=== PATIENT | male | born 1955 | race Caucasian/White ===

== ENCOUNTER 2019-06-09 05:27 | Day surgery (SDC) | payer OTHER ==
[~2019-06-09] VITALS: Ht 182.9 cm; Wt 93.0 kg
[2019-06-09 06:07] LABS: BASOPHILS 0.2 % (0-2); EOSINOPHILS 3.7 % (0-7); HEMATOCRIT 32.4 % (42.0-54.0); HEMOGLOBIN 9.7 g/dL (13.5-17.5); LYMPHOCYTES 29.5 % (15-50); MCH 21.6 pg (26.0-34.0); MCHC 29.9 g/dL (31.0-37.0); MEAN PLATELET VOLUME 9.6 fL (7.4-10.4); MONOCYTES 11.5 % (2-11); NEUTROPHILS 55.1 % (40-80); PLATELET COUNT 154 10x3/uL (130-400); RDW 20.1 % (11.5-14.5); WBC 4.1 10x3/uL (4.8-10.8)
[2019-06-09 06:17] LABS: APTT 31.5 SECONDS (22.8-39.4); INR 1.17 (0.85-1.17); PROTIME 14.4 SECONDS (11.6-15.0)
[2019-06-09 06:29] LABS: ALBUMIN 4.6 g/dL (3.4-5.0); ANION GAP 14.3 mmol/L (8-16); BILIRUBIN - TOTAL 0.46 mg/dL (0.2-1.3); CALCIUM 8.5 mg/dL (8.5-10.1); CARBON DIOXIDE 22.9 mmol/L (21.0-32.0); CREATININE - SERUM 1.1 mg/dL (0.6-1.3); POTASSIUM - SERUM 3.2 mmol/L (3.5-5.1); PROTEIN - SERUM 8.2 g/dL (6.4-8.2)
[2019-06-09 08:51] VITALS: BP 118/71; Ht 182.9 cm; Wt 93.0 kg
[2019-06-09] MEDS ORDERED: NORVASC10 MG PO (09:09)
[2019-06-09] MEDS ORDERED: COREG6.25 MG (09:10)
[2019-06-09] MEDS ORDERED: VASOTEC20 MG (09:10)
[2019-06-09] MEDS ORDERED: FUROSEMIDE40 MG PO (09:11)
[2019-06-09] MEDS ORDERED: HYDRALAZINE HCL25 MG PO (09:12)
[2019-06-09] MEDS ORDERED: ATARAX 25 MG TA25 MG PO (09:12)
[2019-06-09] MEDS ORDERED: INDOCIN25 MG PO (09:13)
[2019-06-09] MEDS ORDERED: NITROSTAT0.4 MG SL (09:14)
[2019-06-09] MEDS ORDERED: CHRONULAC30 ML PO (09:14)
[2019-06-09] MEDS ORDERED: ALDACTONE50 MG PO (09:15)
[2019-06-09] MEDS ORDERED: OMEPRAZOLE20 M1 PO (09:15)
[2019-06-09] MEDS ORDERED: TOPAMAX50 MG PO (09:16)
[2019-06-09] MEDS ORDERED: VENTOLIN (09:17)
--- NOTE | 2019-06-09 14:25 | NUR ---
1411-REC'D FROM RR. DROWSY,EASILY AROUSED,VSS,NO DISTRESS. REPORTS PAIN TO ABD,DESCRIBES AT [facility] WITH RATING 6/10. CO'S AT BEDSIDE WITH CL IN EASY REACH.
--- NOTE | 2019-06-09 16:06 | NUR ---
1453-ATTEMPTED TO ADMINISTER PER MD ORDERS ULTRAM 50MG. AFTER TEACHING ON MEDICATION THIS NURSE WAS SCANNING AND MD ORDERED FOR PAIN. IM THEN SAID HE WAS UNABLE TO TAKE IT BC IT CAUSES HIM TO HAVE "INCREASE ENERGY" REFUSED TO TAKE.
--- NOTE | 2019-06-09 16:07 | NUR ---
1505-DR SAHNI NOTIFIED OF INMATE REFUSING TO TAKE SCRIPT FOR ULTRAM, DOCUMENTED IM IS ALERGIC TO HYDROCODONE. INMATE REQUEST HE TAKE NEURONTIN. NO NEW ORDERS RECEIVED VIA PHONE.
--- NOTE | 2019-06-09 16:08 | NUR ---
1510- DR SAHNI TO PTS ROOM TO DISCUSS CONCERN WITH ALLERGY TO HYDROCODONE, PT REFUSED TO TAKE ULTRAM AND REQUEST TO TAKE NEURONTIN. AFTER KAITLYN AND PTS CONVERSATION. PT AGREES TO TAKE RECOMMENDED PAIN MANAGEMENT REGIMEN OF ULTRAM 50MG.
--- NOTE | 2019-06-09 16:10 | NUR ---
1514- PER MD ORDERS ADMINISTERED ULTRAM 50MG 1 TABLET BY MOUTH FOR PAIN MANAGEMENT. SEE EMAR.
--- NOTE | 2019-06-09 16:11 | NUR ---
1545-DISCHARGE CRITERIA MET. REVIEWED POST OPERATIVE INSTRUCTIONS REVIEWED WITH PT WITH CORRECTIONAL OFFICERS AT SIDE. COPY OF INSTRUCTIONS WITH ULTRAM SCRIPT GIVEN IN BROWN ENVELOPE TO BOTTOM STOP ATTACHER. VERBALIZED UNDERSTANDING OF INSTRUCTIONS. ESCORTED OUT VIA W/C WITH ADC TO DRIVE HOME.
--- NOTE | 2019-06-10 21:29 | OP ---
PATIENT NAME: DALE CABALLERO MEDICAL RECORD: [id number] :57 LOCATION:D.OPS ADMISSION DATE: SURGEON: KAYLA SAHNI MD DATE OF OPERATION: 06/09/2019 PREOPERATIVE DIAGNOSES: 1. Symptomatic gallbladder polyp. 2. Hepatitis C. 3. History of colon polyps. 4. Hematochezia. POSTOPERATIVE DIAGNOSES: 1. Symptomatic gallbladder polyp. 2. Hepatitis C. 3. History of colon polyps. 4. Hematochezia. 5. One low rectal polyp that is not the source of the patient's hematochezia. 6. Advanced cirrhosis. PROCEDURE: 1. Laparoscopic cholecystectomy. 2. Intraoperative cholangiography without immediate surgeon interpretation. 3. 14-gauge core needle liver biopsies. 4. Total colonoscopy to cecum. 5. Hot biopsy forceps polypectomy times 1. SURGEON: Kayla Sahni MD HISTOPATHOLOGIST: None. BLOOD LOSS: 50 cc. ANESTHESIA: General. COMPLICATIONS: None. The risks, possible complications, and alternatives to the procedure were explained to the patient. He elects to proceed. The discussion specifically included, but was not limited to, bleeding requiring emergency reoperation, infection, bowel injury, common ductal injury. OPERATIVE COURSE: The patient was conveyed to the operating room electively on 06/09/2019. General anesthesia was induced by the anesthesia staff. The patient was positioned supine. The abdomen was sterilely prepped and draped. A transverse incision was accomplished in the left upper quadrant. A Veress needle was inserted through the skin jo ann into the peritoneal cavity. CO2 insufflation was begun. Once a sufficient pneumoperitoneum had been achieved, a 5-mm trocar was inserted through an incision in the right upper quadrant. Under direct internal vision utilizing a television camera, a 5-mm trocar was inserted in the left upper quadrant. Another 5-mm trocar was inserted far laterally in the right upper quadrant. A 12-mm trocar was inserted through an incision in the umbilicus. During insertion of the Veress needle and all trocars, there appeared to have been no injury to the bowels, any intraperitoneal or retroperitoneal structures. OPERATIVE REPORT [id number] DALE CABALLERO The indication for the liver biopsy was cirrhosis and hepatitis C. Under laparoscopic guidance, I percutaneously accessed the right upper quadrant utilizing a 14-gauge core biopsy device. Cores were obtained over the convexity of the liver. The biopsy sites were made hemostatic with electrocautery. I then advanced a cholangiogram trocar. I punctured the fundus of the gallbladder. I aspirated bile. I then injected dye. Cholangiographic images were obtained. These were sent to the radiologist for interpretation. The cholangiogram catheter was then removed. The gallbladder was grasped and retracted cephalad. The infundibulum was grasped and retracted laterally. Blunt dissection was begun in the triangle of Calot. Two cystic arteries and one cystic duct were identified. The cystic arteries were divided between clips. The cystic duct was somewhat enlarged. I changed out the left upper quadrant 5-mm trocar for a 12-mm trocar. I advanced an Endo-HERO type device with a white load. I then stapled across the junction of the infundibulum and the cystic duct with an Endo-HERO stapler utilizing a white load. I then excised the gallbladder from its bed in the liver. The gallbladder was placed within a bag retrieval device and was withdrawn through the umbilical fascia defect. The 12-mm trocar was replaced and the abdomen reinsufflated. I irrigated and aspirated in the right upper quadrant. There was no bleeding even at low pressure of 8. The 12-mm trocar at the umbilicus was removed. The fascia at the umbilicus was closed with multiple interrupted #1 Vicryls utilizing the Jesus-Ameena suture closure device. All trocars were removed and the abdomen desufflated. The skin at the umbilicus was closed with interrupted 4-0 Vicryl Rapide sutures. The other skin incisions were closed with interrupted intracuticular 3-0 Vicryls. Benzoin and Steri-Strips were applied. The patient was then positioned in the Alamo position. A digital rectal examination was performed. The prostate was slightly enlarged. It was symmetric and was without nodules. The colonoscope was inserted through the anus. It was easily advanced to the cecum. The prep was adequate. I slowly withdrew the endoscope. The pullback was greater than a 13-minute pullback. I dragged the folds. A combination of normal imaging and narrow band imaging were utilized. In the lower rectum, a flat polyp that was a 9 x 9 mm polyp was removed utilizing the hot biopsy forceps polypectomy technique. A retroflexed view was obtained. I then unretroflexed the scope and removed it under direct vision. The small polyp is not the source of the patient's hematochezia. I think it is likely due to bleeding hemorrhoids. Due to his history of colon polyps, my recommendation would be that he have his next surveillance colonoscopy in 3 years, which will be May of 2022. There is no need for the patient to follow up with me in the office unless he develops a complication related to this operative procedure. The sutures at the umbilicus should fall out in 2-3 weeks and do not need to be cut out. 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
== END 2019-06-09 15:45 | disposition home or self-care (01) ==
LOC: D.OPS 05:27
PROVIDERS: Anesthesiology; ATTEND Surgery
DX: K82.4 Cholesterolosis of gallbladder (principal); B19.20 Unspecified viral hepatitis C without hepatic coma; Z87.11 Personal history of peptic ulcer disease; K92.1 Melena; K62.1 Rectal polyp; K74.60 Unspecified cirrhosis of liver